=== PATIENT | male | born 1965 | race Two or more races ===

== ENCOUNTER 2017-01-12 15:35 | Emergency (ER) | payer OTHER ==
[~2017-01-12] VITALS: Ht 160 cm; Wt 65.8 kg
[2017-01-12 16:15] VITALS: BP 141/84
[2017-01-12] MEDS ORDERED: IBUPROFEN600 MG ORAL (16:52)
[2017-01-12 17:50] VITALS: BP 132/80
--- NOTE | 2017-01-12 21:27 | Emergency Room Report ---
History of Present Illness General Chief Complaint: Upper Extremity Injury Source: Patient Present Illness HPI 51-year-old male presents ED waiting her right arm pain. States that this morning a heavy trashcan fell on his right arm. Patient notes pain to his right forearm. 8/10, throbbing, nonradiating. Denies any other injuries. No other aggravating factors. Denies any other associated symptoms Allergies: Coded Allergies: No Known Allergies (Unverified , 01/12/17) Patient History Past Medical History: none Past Surgical History: none Pertinent Family History: none Social History: Denies: smoking, alcohol use, drug use Immunizations: UTD Reviewed Nursing Documentation: PMH: Agreed, PSxH: Agreed Nursing Documentation-PMH Hx Cardiac Problems: No Hx Hypertension: No Hx Pacemaker: No Hx Asthma: No Hx COPD: No Hx Diabetes: No Hx Cancer: No Hx Gastrointestinal Problems: No Hx Dialysis: No History Of Psychiatric Problem: No Hx Neurological Problems: No Hx Cerebrovascular Accident: No Hx Seizures: No Review of Systems All Other Systems: negative except mentioned in HPI Physical Exam Vital Signs Date Time Temp Pulse Resp B/P (MAP) Pulse Ox O2 Delivery O2 Flow Rate FiO2 01/12/17 15:45 98.6 76 18 141/84 98 Room Air Sp02 EP Interpretation: reviewed, normal General Appearance: no apparent distress, alert, GCS 15, non-toxic Head: normocephalic Eyes: bilateral eye normal inspection, bilateral eye PERRL ENT: normal ENT inspection Neck: normal inspection Respiratory: normal inspection Cardiovascular #1: normal inspection Gastrointestinal: normal inspection Rectal: deferred Genitourinary: no CVA tenderness Musculoskeletal: tender - TTP R forearm Neurologic: alert, oriented x3, responsive, motor strength/tone normal, sensory intact, speech normal Psychiatric: normal inspection Skin: normal inspection Lymphatic: normal inspection Medical Decision Making Diagnostic Impression: Primary Impression: Contusion, forearm Qualified Codes: S50.11XA - Contusion of right forearm, initial encounter ER Course Hospital Course 51-year-old M presents to ED complaining of R forearm pain Differential diagnoses include: Fracture, dislocation, sprain, contusion Clinical course Patient placed on stretcher. After initial history and physical, I ordered pain medications and Xrays of R forearm/elbow Xrays prelim read shows no acute fracture/dislocation. Diagnosis - forearm contusion Stable and discharged to home with prescription for Motrin. apply ice, keep elevated. weight bear as tolerated. Followup with PMD. Return to ED if symptoms recur or worsen Other X-Ray Diagnostic Results Other X-Ray Diagnostic Results #1: X-Ray ordered: R forearm # of Views/Limited Vs Complete: 2 View Indication: Pain EP Interpretation: Yes Interpretation: no dislocation, no soft tissue swelling, no fractures Impression: No acute disease Electronically Signed by: Electronically signed by Chance Beth MD Other X-Ray Diagnostic Results #2: X-Ray ordered: R elbow # of Views/Limited Vs Complete: 3 View Indication: Pain EP Interpretation: Yes Interpretation: no dislocation, no soft tissue swelling, no fractures Impression: No acute disease Electronically Signed by: Electronically signed by Chance Beth MD Last Vital Signs Date Time Temp Pulse Resp B/P (MAP) Pulse Ox O2 Delivery O2 Flow Rate FiO2 01/12/17 17:50 98.6 78 18 132/80 98 Room Air Status: improved Disposition: HOME, SELF-CARE Condition: Stable Scripts Ibuprofen* (MOTRIN*) 600 Mg Tablet 600 MG ORAL Q8H Y for For Pain, #30 TAB 0 Refills Prov: CHANCE BETH M.D. 01/12/17 Departure Forms: Return to Work Return to Work Date: Jan 14, 2017 Work Restrictions: No Heavy Lifting Patient Instructions: Rashawnusion [id number] CHANCE BETH M.D. Jan 12, 2017 21:26
--- NOTE | 2017-01-13 10:55 | Diagnostic Imaging Report ---
Indication: Right forearm pain Technique: XRAY FOREARM 2 VIEWS RIGHT Comparison: None Findings: There is no acute fracture or dislocation. Bone mineralization is normal. Soft tissues are grossly unremarkable. Impression: No acute osseous abnormality.
--- NOTE | 2017-01-13 10:55 | Diagnostic Imaging Report ---
Indication: Right elbow pain Technique: XRAY ELBOW MIN 3 VIEWS RIGHT Comparison: None Findings: There is no acute fracture. No elbow joint effusion is identified. Bone mineralization is normal. Impression: No acute osseous abnormality.
== END 2017-01-12 17:53 | disposition home or self-care (01) ==
LOC: EMR 16:27
DX: S50.12XA Contusion of left forearm, initial encounter (principal); W22.8XXA Striking against or struck by other objects, initial encounter; Y92.89 Other specified places as the place of occurrence of the external cause; Y99.0 Civilian activity done for income or pay
CPT/HCPCS: 99283